=== PATIENT | male | born 1940 | race Caucasian/White ===

== ENCOUNTER 2016-06-22 12:15 | Emergency (ER) | payer MEDICARE, OTHER ==
[2016-06-22] MEDS ORDERED: SODIUM CHLORIDE 0.9% 1,000 ML IV STA (12:55)
[2016-06-22] MEDS ORDERED: ONDANSETRON 4 MG/2 ML VIAL IVP STA (12:55)
[2016-06-22] MEDS ORDERED: HYDROmorphone 1 MG/ML 1 ML SYRINGE IVP STA ×2 (12:55→15:23)
--- NOTE | 2016-06-22 12:57 | ED ---
General Adult HPI - General Chief complaint: Abdominal Pain Stated complaint: back and abd pain Time Seen by Provider: 06/22/16 12:51 Source: patient, RN notes reviewed Mode of arrival: ambulatory Limitations: no limitations - History of Present Illness Initial comments: Patient is a 75-year-old male who presents emergency room today with a chief complaint of right flank pain that started approximately 3 hours ago. Patient does admit to a sharp pain that started 3 hours ago located to the right side of the abdomen. He states he does feel some discomfort in his back radiating down to the right testicle. He does admit that he feels like he needs to urinate but is only going small amounts. Denies any other complaints. States she's never had similar symptoms in the past. Denies any history of any surgeries in the abdomen. Patient denies any recent fever, chills, shortness of breath, chest pain, back pain, numbness or tingling, dysuria or hematuria, constipation or diarrhea, headaches or visual changes, or any other complaints. - Related Data Home Medications Medication Instructions Recorded Confirmed Apixaban [Eliquis] 5 mg PO BID 06/22/16 06/22/16 Fish Oil/Dha/Epa [Fish Oil 1,200 1 cap PO DAILY 06/22/16 06/22/16 mg Fish Oil] Multivitamins, Thera [Multivitamin 1 tab PO DAILY 06/22/16 06/22/16 (formulary)] Turmeric Root Extract [Turmeric] 500 mg PO DAILY 06/22/16 06/22/16 Ubidecarenone [Co Q-10] 100 mg PO DAILY 06/22/16 06/22/16 amLODIPine [Norvasc] 5 mg PO DAILY 06/22/16 06/22/16 Previous Rx's Medication Instructions Recorded Hydrocodone/Acetaminophen [[place] 1 each PO Q6HR PRN #20 tab 06/22/16 5-325] Ondansetron Odt [Zofran ODT] 4 mg PO Q8HR PRN #20 tab 06/22/16 Sulfamethox-Tmp 800-160Mg [Bactrim 1 tab PO Q12HR #20 tab 06/22/16 DS 800-160 mg] Tamsulosin [Flomax] 0.4 mg PO DAILY #20 cap 06/22/16 Allergies Allergy/AdvReac Type Severity Reaction Status Date / Time No Known Allergies Allergy Verified 06/22/16 14:34 Review of Systems ROS Statement: Those systems with pertinent positive or pertinent negative responses have been documented in the HPI. ROS Other: All systems not noted in ROS Statement are negative. Past Medical History Past Medical History: Hypertension History of Any Multi-Drug Resistant Organisms: None Reported Additional Past Surgical History / Comment(s): neck Past Psychological History: No Psychological Hx Reported Smoking Status: Current some day smoker Past Alcohol Use History: None Reported Past Drug Use History: None Reported General Exam - General Exam Comments Initial Comments: General: The patient is awake and alert, in no distress, and does not appear acutely ill. Eye: Pupils are equal, round and reactive to light, extra-ocular movements are intact. No nystagmus. There is normal conjunctiva bilaterally. No signs of icterus. Ears, nose, mouth and throat: There are moist mucous membranes and no oral lesions. Neck: The neck is supple, there is no tenderness or JVD. Cardiovascular: There is a regular rate and rhythm. No murmur, rub or gallop is appreciated. Respiratory: Lungs are clear to auscultation, respirations are non-labored, breath sounds are equal. No wheezes, stridor, rales, or rhonchi. Gastrointestinal: Normal. 7. Normal bowel sounds. Abdomen soft on palpation. Patient does have tenderness in the right flank. No rebound tenderness. No guarding. Musculoskeletal: Normal ROM, no tenderness. Strength 5/5. Sensation intact. Pulses equal bilaterally 2+. Neurological: A&O x 3. CN II-XII intact, There are no obvious motor or sensory deficits. Coordination appears grossly intact. Speech is normal. Skin: Skin is warm and dry and no rashes or lesions are noted. Psychiatric: Cooperative, appropriate mood & affect, normal judgment. Limitations: no limitations Course Vital Signs 06/22/16 06/22/16 06/22/16 12:46 13:20 14:14 Temperature 97.4 F L 97.7 F Pulse Rate 55 L 57 L 63 Respiratory 20 16 18 Rate Blood Pressure 137/70 115/67 138/60 O2 Sat by Pulse 98 98 95 Oximetry Medical Decision Making - Medical Decision Making Patient's CT reviewed and does show distal right ureteral calculus with hydronephrosis. Nonobstructive upper pole right renal calculus. Kidney stone measuring 4-5 mm. Results were discussed with patient. A large blood in his urinalysis. 10 white cells. Has been given dose of Rocephin here in emergency room. Remaining labs reviewed and are unremarkable. Patient will be discharged home on Flomax, pain medication and nausea medication to use as needed and advised follow-up the family doctor and urologist over the next 2 days. Advised return here in the emergency room for fever, increase or worsening of symptoms or any other concerns. Patient and family member at bedside state understanding and are in agreement. - Lab Data Result diagrams: 06/22/16 13:05 06/22/16 13:05 Lab Results 06/22/16 06/22/16 06/22/16 Range/Units 13:05 13:05 13:05 WBC 10.1 (3.8-10.6) k/uL RBC 4.85 (4.30-5.90) m/uL Hgb 16.2 (13.0-17.5) gm/dL Hct 49.9 (39.0-53.0) % MCV 102.8 H (80.0-100.0) fL MCH 33.4 (25.0-35.0) pg MCHC 32.5 (31.0-37.0) g/dL RDW 13.4 (11.5-15.5) % Plt Count 263 (150-450) k/uL Neutrophils % 86 % Lymphocytes % 9 % Monocytes % 3 % Eosinophils % 0 % Basophils % 0 % Neutrophils # 8.7 H (1.3-7.7) k/uL Lymphocytes # 0.9 L (1.0-4.8) k/uL Monocytes # 0.3 (0-1.0) k/uL Eosinophils # 0.0 (0-0.7) k/uL Basophils # 0.0 (0-0.2) k/uL Macrocytosis Slight Sodium 143 (137-145) mmol/L Potassium 4.2 (3.5-5.1) mmol/L Chloride 104 (98-107) mmol/L Carbon Dioxide 27 (22-30) mmol/L Anion Gap 12 mmol/L BUN 12 (9-20) mg/dL Creatinine 1.02 (0.66-1.25) mg/dL Est GFR (MDRD) Af Amer >60 (>60 ml/min/1.73 sqM) Est GFR (MDRD) Non-Af >60 (>60 ml/min/1.73 sqM) Glucose 129 H (74-99) mg/dL Calcium 10.1 (8.4-10.2) mg/dL Total Bilirubin 0.8 (0.2-1.3) mg/dL AST 26 (17-59) U/L ALT 30 (21-72) U/L Alkaline Phosphatase 80 (38-126) U/L Total Protein 7.6 (6.3-8.2) g/dL Albumin 4.4 (3.5-5.0) g/dL Amylase 55 (30-110) U/L Lipase 98 (23-300) U/L Urine Color Yellow Urine Appearance Clear (Clear) Urine pH 5.5 (5.0-8.0) Ur Specific [place] 1.012 (1.001-1.035) Urine Protein Negative (Negative) Urine Glucose (UA) Negative (Negative) Urine Ketones Trace H (Negative) Urine Blood Large H (Negative) Urine Nitrite Negative (Negative) Urine Bilirubin Negative (Negative) Urine Urobilinogen <2.0 (<2.0) mg/dL Ur Leukocyte Esterase Negative (Negative) Urine RBC >182 H (0-5) /hpf Urine WBC 10 H (0-5) /hpf Urine Mucus Rare H (None) /hpf Disposition Clinical Impression: Kidney stone Disposition: HOME SELF-CARE Condition: Good Instructions: Kidney Stones (ED) Additional Instructions: Please use medication as discussed. Please follow-up with family doctor in the next 2 days of symptoms have not improved. Please return to emergency room if the symptoms increase or worsen or for any other concerns. Prescriptions: Hydrocodone/Acetaminophen [[place] 5-325] 1 each PO Q6HR PRN #20 tab PRN Reason: Pain Ondansetron Odt [Zofran ODT] 4 mg PO Q8HR PRN #20 tab PRN Reason: Nausea Sulfamethox-Tmp 800-160Mg [Bactrim DS 800-160 mg] 1 tab PO Q12HR #20 tab Tamsulosin [Flomax] 0.4 mg PO DAILY #20 cap Referrals: Rodríguez Martin MD [Primary Care Provider] - 1-2 days Álvaro Briceño MD [STAFF PHYSICIAN] - 1-2 days Time of Disposition: 15:06
[2016-06-22 13:29] LABS: Basophils % (A) 0 %; CH 34.4; CHCM 33.6; Eosinophils % (A) 0 %; HCT 49.9 % (39.0-53.0); HDW 2.57; HGB 16.2 gm/dL (13.0-17.5); Luc # (Auto) 0.11; Luc % (Auto) 1; Lymphocytes # (A) 0.9 k/uL (1.0-4.8); Lymphocytes % (A) 9 %; MCH 33.4 pg (25.0-35.0); MCHC 32.5 g/dL (31.0-37.0); MCV 102.8 fL (80.0-100.0); Macrocytosis Slight; Mean Platelet Volume 6.7; Monocytes # (A) 0.3 k/uL (0-1.0); Monocytes % (A) 3 %; Neutrophils # (A) 8.7 k/uL (1.3-7.7); Neutrophils % (A) 86 %; RBC 4.85 m/uL (4.30-5.90); RDW 13.4 % (11.5-15.5); WBC 10.1 k/uL (3.8-10.6); WBC (Perox) 10.09
[2016-06-22 13:36] LABS: Appearance,Urine Clear (Clear); Bilirubin,Urine Negative (Negative); Glucose,Urine (UA) Negative (Negative); Ketones,Urine Trace (Negative); Leukocyte Esterase,Urine Negative (Negative); Mucus,Urine Rare /hpf; Nitrite,Urine Negative (Negative); PH, Urine 5.5 (5.0-8.0); Particle Count 1868; Protein,Urine Negative (Negative); RBC,Urine >182 /hpf (0-5); Specific Gravity,Urine 1.012 (1.001-1.035); UA Billing (MACRO vs. MICRO) MICRO; Urobilinogen,Urine <2.0 mg/dL (<2.0); WBC,Urine 10 /hpf (0-5)
[2016-06-22 13:38] LABS: ALT 30 U/L (21-72); AST 26 U/L (17-59); Alkaline Phosphatase 80 U/L (38-126); Amylase 55 U/L (30-110); Anion Gap 12 mmol/L; Blood Urea Nitrogen 12 mg/dL (9-20); Calcium 10.1 mg/dL (8.4-10.2); Carbon Dioxide 27 mmol/L (22-30); Chloride 104 mmol/L (98-107); Glucose 129 mg/dL (74-99); Non-African American GFR(MDRD) >60 (>60 ml/min/1.73 sqM); Potassium 4.2 mmol/L (3.5-5.1); Sodium 143 mmol/L (137-145); Total Bilirubin 0.8 mg/dL (0.2-1.3); Total Protein 7.6 g/dL (6.3-8.2)
--- NOTE | 2016-06-22 13:51 | XR ---
EXAMINATION TYPE: XR KUB DATE OF EXAM ORDERED: 06/22/2016 1:36 PM HISTORY: abdominal pain. COMPARISON: None. FINDINGS: There is a gentle levoscoliosis. The abdominal gas pattern is normal. There is no evidence of obstruction or free air. There are minim al vascular calcifications within the pelvis. IMPRESSION: NO ACUTE INTRA-ABDOMINAL ABNORMALITY.
[2016-06-22 14:18] VITALS: RESP 18; TEMP 97.7
--- NOTE | 2016-06-22 14:45 | CT ---
EXAMINATION TYPE: CT abdomen pelvis wo con DATE OF EXAM: 06/22/2016 2:24 PM COMPARISON: NONE HISTORY: nausea and vomiting CT DLP: 272.9 mGycm Automated exposure control for dose reduction was used. TECHNIQUE: Helical acquisition of images from the lung bases through the pelvis. FINDINGS: LUNG BASES: There are posterior diaphragmatic hernias bilaterally. Some probable scarring present romeo ng the lingula. Coronary artery calcifications are present. AORTA: No significant abnormality is appreciated. LIVER/GB: No significant abnormality is appreciated. PANCREAS: No significant abnormality is seen. SPLEEN: No significant abnormality is seen. ADRENALS: No significant abnormality is seen. KIDNEYS: Large exophytic cysts are present anteriorly at the mid and lower pole of the left kidney me asuring 6 and 7 cm. The right kidney shows hydronephrosis. Punctate calcification present at the uppe r pole. There is right-sided hydroureter, distal right ureteral calcification is present measuring 4 to 5 mm. REPRODUCTIVE ORGANS: Prostate is enlarged and shows associated calcifications URINARY BLADDER: Thickened wall may be due to chronic outlet obstruction BOWEL: Diverticular change in the sigmoid colon. No evident bowel obstruction. FREE AIR: No Free Air is visible. ASCITES: None visible. PELVIC ADENOPATHY: None visualized. RETROPERITONEAL ADENOPATHY: No Retroperitoneal Adenopathy visible. OSSEOUS STRUCTURES: Degenerative disc disease, scoliosis, facet arthropathy is present. IMPRESSION: NONCONTRAST EXAM. DISTAL RIGHT URETERAL CALCULUS WITH HYDRONEPHROSIS, THERE IS A NONOBSTRUCTIVE UPPER POLE RIGHT RENAL CALCULUS. ADDITIONAL FINDINGS ABOVE. DIVERTICULOSIS.
[2016-06-22 15:36] VITALS: BP 164/73; PULSE 65
== END 2016-06-22 15:36 | disposition home or self-care (01) ==
LOC: EC 12:15
DX: N13.2 Hydronephrosis with renal and ureteral calculous obstruction (principal); K57.30 Diverticulosis of large intestine without perforation or abscess without bleeding; I10 Essential (primary) hypertension; F17.200 Nicotine dependence, unspecified, uncomplicated; Z79.01 Long term (current) use of anticoagulants; Z79.899 Other long term (current) drug therapy
CPT/HCPCS: 99284 ×2; 96375 ×3; 96376 ×2; 96361 ×2; 96374; 36415; 80053; 82150; 83690; 85025; 81001; 87086; 74000; 74176; 96365; J2405; J0696; J1170

== ENCOUNTER 2018-01-04 23:47 | Emergency (ER) | payer MEDICARE, OTHER ==
[2018-01-04 23:52] VITALS: TEMP 98.2
[2018-01-05] MEDS ORDERED: TROPICAMIDE 1% OPHTH DROPS 2 ML BTL RIGHT EYE STA (00:18)
--- NOTE | 2018-01-05 00:43 | ED ---
Eye Problem HPI - General Chief complaint: Eye Problems Stated complaint: loss of vision Time Seen by Provider: 01/05/18 00:08 Source: patient, family Mode of arrival: ambulatory Limitations: no limitations - History of Present Illness Initial comments: This patient is a 77-year-old man who had the acute onset of visual loss of the right eye at approximately 10:45 PM tonight. The patient denies any trauma or injury to the eye. He states that it appears that the entire of vision on the right has gone dark. I did not appear to come on gradually. It did not appear to come on as a curtain coming over the visual field. Patient denies headache or orbital pain. History is notable for having cataract surgery 2 months ago, performed, without complication. MD chief complaint: vision change Onset/Timin -: hour(s) Onset Description: sudden Location: right eye Place: home If Injury: none Consistency: constant Associated Symptoms: none Treatments Prior to Arrival: none - Related Data Home Medications Medication Instructions Recorded Confirmed Apixaban [Eliquis] 5 mg PO BID 06/22/16 06/22/16 Fish Oil/Dha/Epa [Fish Oil 1,200 1 cap PO DAILY 06/22/16 06/22/16 mg Fish Oil] Multivitamins, Thera [Multivitamin 1 tab PO DAILY 06/22/16 06/22/16 (formulary)] Turmeric Root Extract [Turmeric] 500 mg PO DAILY 06/22/16 06/22/16 Ubidecarenone [Co Q-10] 100 mg PO DAILY 06/22/16 06/22/16 amLODIPine [Norvasc] 5 mg PO DAILY 06/22/16 06/22/16 Previous Rx's Medication Instructions Recorded Hydrocodone/Acetaminophen [[place] 1 each PO Q6HR PRN #20 tab 06/22/16 5-325] Ondansetron Odt [Zofran ODT] 4 mg PO Q8HR PRN #20 tab 06/22/16 Sulfamethox-Tmp 800-160Mg [Bactrim 1 tab PO Q12HR #20 tab 06/22/16 DS 800-160 mg] Tamsulosin [Flomax] 0.4 mg PO DAILY #20 cap 06/22/16 Allergies Allergy/AdvReac Type Severity Reaction Status Date / Time No Known Allergies Allergy Verified 01/04/18 23:52 Review of Systems ROS Statement: Those systems with pertinent positive or pertinent negative responses have been documented in the HPI. ROS Other: All systems not noted in ROS Statement are negative. Constitutional: Denies: fever, chills Eyes: Reports: vision change. Denies: eye pain, eye discharge ENT: Denies: congestion Respiratory: Denies: cough, dyspnea Cardiovascular: Denies: chest pain, palpitations, syncope Gastrointestinal: Denies: abdominal pain, vomiting, diarrhea Neurological: Denies: headache, weakness, numbness, paresthesias Past Medical History Past Medical History: Hypertension History of Any Multi-Drug Resistant Organisms: None Reported Additional Past Surgical History / Comment(s): neck Past Psychological History: No Psychological Hx Reported Smoking Status: Current some day smoker Past Alcohol Use History: None Reported Past Drug Use History: None Reported General Exam Limitations: no limitations General appearance: alert, in no apparent distress Head exam: Present: atraumatic, normocephalic Eye exam: Present: normal appearance, EOMI. Absent: scleral icterus, conjunctival injection, periorbital swelling, periorbital tenderness Pupils: Present: other (Afferent pupillary defect.) Expanded Eyelids: Normal Inspection: Bilateral Pupils: Regular, Round: Bilateral, Reactive: Left Sclera/Conjunctival: Normal Inspection: Bilateral Anterior chamber: Normal Inspection: Bilateral IOP (R) in mmH IOP (L) in mmH IOP measured with: other (iCare device) ENT exam: Present: normal oropharynx Neck exam: Present: normal inspection Respiratory exam: Present: normal lung sounds bilaterally. Absent: respiratory distress, wheezes, rales, rhonchi, stridor Cardiovascular Exam: Present: regular rate, normal rhythm, normal heart sounds. Absent: systolic murmur, diastolic murmur, rubs, gallop Neurological exam: Present: alert, oriented X3, CN II-XII intact. Absent: motor sensory deficit Skin exam: Present: warm, dry, intact, normal color. Absent: rash Course Vital Signs 01/04/18 01/05/18 01/05/18 23:50 01:09 01:47 Temperature 98.2 F Pulse Rate 69 65 Respiratory 18 16 16 Rate Blood Pressure 161/87 152/84 149/75 O2 Sat by Pulse 96 95 Oximetry 01/05/18 02:13 Temperature Pulse Rate 69 Respiratory 16 Rate Blood Pressure 132/69 O2 Sat by Pulse 99 Oximetry Medical Decision Making - Medical Decision Making Patient is 77-year-old man with acute, painless, right eye visual acuity loss. I did attempt to reach Dr. Brantley, who is pharmacy operations manager operations research scientist, but was unsuccessful after multiple attempts at all of the contact numbers we have available. I was able to reach Dr. Huynh, who was able to see the patient in the emergency department. After dilation, the funduscopic exam does appear consistent with retinal artery occlusion. Dr. Huynh's treatment recommendations are incorporated. He performed globe massage. In addition he was able to withdraw small amount of fluid from the patient's anterior chamber. Following treatment, patient's pressure checked again and it is now 2 mmHg. The patient is given additional treatment to continue over the course the day and is to contact Dr. Brantley. She is not able to speak with Dr. Brantley follow with . Term parameters discussed. - Lab Data Result diagrams: 01/05/18 00:57 01/05/18 00:57 Lab Results 01/05/18 01/05/18 Range/Units 00:57 00:57 WBC 8.1 (3.8-10.6) k/uL RBC 4.72 (4.30-5.90) m/uL Hgb 15.2 (13.0-17.5) gm/dL Hct 47.3 (39.0-53.0) % MCV 100.3 H (80.0-100.0) fL MCH 32.2 (25.0-35.0) pg MCHC 32.1 (31.0-37.0) g/dL RDW 14.2 (11.5-15.5) % Plt Count 247 (150-450) k/uL Neutrophils % 48 % Lymphocytes % 34 % Monocytes % 9 % Eosinophils % 5 % Basophils % 1 % Neutrophils # 3.9 (1.3-7.7) k/uL Lymphocytes # 2.8 (1.0-4.8) k/uL Monocytes # 0.7 (0-1.0) k/uL Eosinophils # 0.4 (0-0.7) k/uL Basophils # 0.1 (0-0.2) k/uL Macrocytosis Slight Sodium 140 (137-145) mmol/L Potassium 4.1 (3.5-5.1) mmol/L Chloride 109 H (98-107) mmol/L Carbon Dioxide 24 (22-30) mmol/L Anion Gap 7 mmol/L BUN 13 (9-20) mg/dL Creatinine 1.03 (0.66-1.25) mg/dL Est GFR (CKD-EPI)AfAm 81 (>60 ml/min/1.73 sqM) Est GFR (CKD-EPI)NonAf 70 (>60 ml/min/1.73 sqM) Glucose 84 (74-99) mg/dL Calcium 9.4 (8.4-10.2) mg/dL C-Reactive Protein <5.0 (<10.0) mg/L Disposition Clinical Impression: Retinal artery occlusion Disposition: HOME SELF-CARE Condition: Fair Instructions: Blurred Vision (ED) Is patient prescribed a controlled substance at d/c from ED?: No Referrals: Rodríguez Martin MD [Primary Care Provider] - 1-2 days
[2018-01-05] MEDS ORDERED: VERAPAMIL 2.5 MG/ML 2 ML AMP IVP STA (01:06)
[2018-01-05 01:10] VITALS: RESP 16
[2018-01-05 01:18] LABS: Basophils # (A) 0.1 k/uL (0-0.2); Basophils % (A) 1 %; Eosinophils # (A) 0.4 k/uL (0-0.7); Eosinophils % (A) 5 %; HCT 47.3 % (39.0-53.0); HGB 15.2 gm/dL (13.0-17.5); Lymphocytes # (A) 2.8 k/uL (1.0-4.8); Lymphocytes % (A) 34 %; MCH 32.2 pg (25.0-35.0); MCHC 32.1 g/dL (31.0-37.0); MCV 100.3 fL (80.0-100.0); Macrocytosis Slight; Mean Platelet Volume 6.7; Monocytes # (A) 0.7 k/uL (0-1.0); Monocytes % (A) 9 %; Neutrophils # (A) 3.9 k/uL (1.3-7.7); Neutrophils % (A) 48 %; Platelet Count 247 k/uL (150-450); RBC 4.72 m/uL (4.30-5.90); RDW 14.2 % (11.5-15.5); WBC 8.1 k/uL (3.8-10.6)
[2018-01-05 01:32] LABS: Anion Gap 7 mmol/L; Blood Urea Nitrogen 13 mg/dL (9-20); Calcium 9.4 mg/dL (8.4-10.2); Carbon Dioxide 24 mmol/L (22-30); Chloride 109 mmol/L (98-107); Glucose 84 mg/dL (74-99); Potassium 4.1 mmol/L (3.5-5.1); Sodium 140 mmol/L (137-145)
[2018-01-05 01:33] LABS: C Reactive Protein <5.0 mg/L (<10.0)
[2018-01-05] MEDS ORDERED: PROPARACAINE 0.5% OPHTH DROPS 15 ML BTL ONE (01:53)
[2018-01-05] MEDS ORDERED: PROPARACAINE 0.5% OPHTH DROPS 15 ML BTL RIGHT EYE STA (01:53)
--- NOTE | 2018-01-05 01:54 | CT ---
EXAMINATION TYPE: CT brain wo con DATE OF EXAM: 01/05/2018 COMPARISON: None HISTORY: loss of vision right eye CT DLP: 1056.60 mGycm Automated exposure control for dose reduction was used. FINDINGS: There is cerebral cortical atrophy. There is no mass effect nor midline shift. There is no sign of in tracranial hemorrhage. The calvarium is intact. There is some mucosal thickening in the ethmoid sinus to a mild extent. There is no evidence of orbital mass. IMPRESSION: CEREBRAL ATROPHY. NO ACUTE INTRACRANIAL ABNORMALITY.
[2018-01-05] MEDS ORDERED: SULFACETAMIDE SOD 10% OPHTH DROPS 15 ML BTL RIGHT EYE STA (02:12)
[2018-01-05 02:15] VITALS: BP 132/69; PULSE 69
[2018-01-05] MEDS ORDERED: BRIMONIDINE TARTRATE 0.2% DROPS 5 ML BTL RIGHT EYE STA (02:32)
[2018-01-05] MEDS ORDERED: prednisoLONE ACETATE 1% OPHTH DROPS 5 ML BTL RIGHT EYE STA (02:32)
--- NOTE | 2018-01-05 12:53 | CONS ---
CONSULTATION DATE OF CONSULTATION: January 05, 2018. REASON FOR CONSULTATION: Consultation is for sudden onset of loss of vision in the right eye. HISTORY OF PRESENT ILLNESS: Approximately two hours prior to being called to the emergency room Mr. Fernando who is a 77-year-old gentleman who underwent cataract surgery approximately 2 months ago, presented with a sudden painless loss of vision in the right eye. He was initially evaluated by the emergency room physician and a number of examinations were performed including CT, EKG and lab work. There was nothing outstanding found in any of the preliminary work except for the fact that the patient was no light perception at the time of his admission. 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 The patient denies that he has had any symptoms of polymyalgia rheumatica and giant cell arteritis, trauma to the eye or other difficulties. According to his , he had a particularly busy day cleaning up around the around the beach and taking care of the lawn, getting ready for fall. Apparently, this gentleman's only underlying medical problems primarily center around an episode of paroxysmal atrial fibrillation, which seems to be adequate adequately controlled on amlodipine and currently he takes Xarelto as a protective measure. REVIEW OF SYSTEMS: Is largely inconsequential as far as any problems except for that which relates specifically to the eye. His past ocular history is consistent with cataract surgery approximately 2 months ago, which was accomplished bilaterally with Dr. Brantley. PHYSICAL EXAMINATION: GENERAL: The patient was alert, oriented, and in no acute distress. He was really able to discuss with me his underlying problem. Ocular examination including visual acuity was perhaps light perception with projection in the right eye. A definite afferent pupillary defect was noted with bright light in the right eye. Intraocular pressures bilaterally using an eye care tonometer was 11 mm in the each eye. Slit lamp examination revealed the cornea to be clear. Conjunctivae bilaterally were quiet. Anterior chambers were deep and quiet. Irides were without any pathology. Intra- ocular lenses are extended depth of field type. Vitreous was clear. Optic nerve was sharp, flat and mildly pale on the right. It was difficult to examine the left without any dilation. Cup-to-disc was approximately 0.1 on the right and generalized funduscopic examination revealed thready arterials with no evidence of any Hollenhorst plaque like debris anywhere within the fundus. Centrally, however, there was a very distinct cunningham red spot with active plasma swelling within the arcades of the right eye. While at the slit lamp, attempts at digital massage of the right globe did not particularly improve the visual situation. However, there was an appreciable increase in arterial flow throughout the fundus. The concern at this point was that there was nothing notably identified within the circulation. Therefore, in an attempt to try to improve the arterial circulation better, it was decided to opt for a paracentesis in the right eye. This was accomplished, and the intra-ocular pressure was dropped to 2 mmHg with perhaps a slight improvement in the temporal field from the right eye on confrontational sales. 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 RECOMMENDATION: 1. Was to start brimonidine 0.23 times a day in the right eye as well as prednisolone acetate 1% 3 times a day in the right eye. 2. Would be to follow up with Dr. Brantley within the next 24-48 hours. 3. He is to follow up with Dr. Ku with carotid studies which have been ongoing semi annually apparently for some period of time as this is probably an embolic phenomenon. 4. Would be to discuss with Dr. Martin the underlying problem and to possibly seek an echocardiogram to examine the heart to be sure that there is no evidence of any clotting debris within the atria with his underlying history. Thank you very much for this consultation. MMODL / IJN: [id number] /
--- NOTE | 2018-01-05 13:05 | OP ---
OPERATIVE REPORT DATE OF PROCEDURE: 01/05/2018. PROCEDURE: Paracentesis of the right eye. PREOPERATIVE DIAGNOSIS: Sudden loss of vision in the right eye. POSTOPERATIVE DIAGNOSIS: Sudden loss of vision in the right eye. SURGEON: Dr. Suresh Huynh. ANESTHESIA: Topical. ESTIMATED BLOOD LOSS: None. SPECIMENS TAKEN: None. NARRATIVE: This 77-year-old gentleman presented with a sudden onset of painless loss of vision in his right eye. All underlying labs indicate that this is most likely of an embolic cause. During slit-lamp examination, it was determined that there was an improvement in arterial circulation, and despite the fact that the intraocular pressure was only 11 mmHg to start with, it was felt somewhat worthwhile to attempt to lower the pressure a little bit further with a somewhat longer and more profound drop in pressure through a surgical technique. Therefore, it was decided to proceed with a paracentesis of the right eye. DESCRIPTION OF PROCEDURE: He was prepared using proparacaine 4 sets of drop approximately 3 minutes apart. The eye was prepped with Betadine on the skin and eyelid. A José Miguel lid speculum was used to hold the eyes open. He was then asked to maintain his fixation on an object across the room using his left eye. A 30-gauge hypodermic needle on a tuberculin syringe was entered temporally into the patient's cornea parallel to the iris, with the tip of the needle in the mid anterior chamber. Approximately 2/10 of a milliliter of aqueous was drawn off of the eye and the needle was withdrawn without difficulty. A drop of sulfacetamide antibiotic drops was placed in the eye on removal of the lid speculum. The patient was then brought back to the slit-lamp and, on funduscopic examination, it was appreciated that the arterials were somewhat more full. There was no appreciable improvement in central vision, as probably there would not be with there being some axoplasmic stagnation, but there was some appreciation of superotemporal vision, as he did appreciate my ear during confrontational field testing. An intraocular pressure using the eye care tonometer following the procedure revealed an intraocular pressure of 2 mm. There were no complications from this procedure. He tolerated the procedure well and discharged from the emergency room, proceeded according to the plans discussed in the emergency room note signed by Dr. Rj Loera. MMMARIANAL / GREYN: [id number] /
== END 2018-01-05 03:11 | disposition home or self-care (01) ==
LOC: EC 23:47
DX: H34.9 Unspecified retinal vascular occlusion (principal); I10 Essential (primary) hypertension; F17.200 Nicotine dependence, unspecified, uncomplicated; Z79.01 Long term (current) use of anticoagulants; Z79.899 Other long term (current) drug therapy; Z98.890 Other specified postprocedural states
CPT/HCPCS: 36415; 65800; 70450; 80048; 85025; 86140; 93005; 96374; 99285

== ENCOUNTER → 2018-02-04 | Outpatient (CLI) | payer MEDICARE ==
[2018-02-04 12:47] LABS: Basophils # (A) 0.1 k/uL (0-0.2); Basophils % (A) 1 %; Eosinophils # (A) 0.4 k/uL (0-0.7); Eosinophils % (A) 4 %; HGB 16.2 gm/dL (13.0-17.5); Lymphocytes # (A) 2.2 k/uL (1.0-4.8); Lymphocytes % (A) 20 %; MCH 32.6 pg (25.0-35.0); MCHC 31.8 g/dL (31.0-37.0); MCV 102.8 fL (80.0-100.0); Macrocytosis Slight; Mean Platelet Volume 6.7; Monocytes # (A) 0.6 k/uL (0-1.0); Monocytes % (A) 6 %; Neutrophils # (A) 7.2 k/uL (1.3-7.7); Neutrophils % (A) 67 %; Platelet Count 222 k/uL (150-450); RBC 4.96 m/uL (4.30-5.90); RDW 14.7 % (11.5-15.5); WBC 10.8 k/uL (3.8-10.6)
[2018-02-04 12:54] LABS: Potassium 4.4 mmol/L (3.5-5.1)
== END | disposition home or self-care (01) ==
LOC: LABPAT 12:00
PROVIDERS: ATTEND Surgery
DX: Z01.812 Encounter for preprocedural laboratory examination (principal); I65.21 Occlusion and stenosis of right carotid artery
CPT/HCPCS: 36415; 80051; 82565; 84520; 85025

== ENCOUNTER 2018-02-07 05:36 | Inpatient (IN) | payer MEDICARE ==
[2018-02-05 10:18] VITALS: BMI 23.6
--- NOTE | 2018-02-06 16:31 | P.HPIHPCON ---
History of Present Illness H&P Date: 02/04/18 Chief Complaint: Symptomatic right carotid stenosis 77 year old gentleman presented to the office secondary to right carotid stenosis. Patient was recently in the hospital secondary to blindness of the right eye which he was found to have right carotid stenosis of >80% on CTA and ultrasound. Patient states still having blindness in the right eye but denies any other lateralizing symptoms. He presents to the hospital for right carotid endarterectomy. Consent for Procedure: I have explained the operation/procedure to the patient, including the risks, benefits, side effects, alternative therapies (including not receiving the proposed treatment or service), the likelihood of the patient achieving his/her goals, and potential recuperation problems for the procedure/sedation/analgesia , as well as any blood products, if indicated. I also explained to the patient the risks, benefits and side effects of the alternatives, as well as the risks related to not receiving the proposed procedure, care, treatment, or services. - Review of Systems All systems: negative (which is stated in the HPI and PMH.) Past Medical History Past Medical History: Atrial Fibrillation, Hypertension, Osteoarthritis (OA) History of Any Multi-Drug Resistant Organisms: None Reported Additional Past Surgical History / Comment(s): cervical fusion, cataract surg. Past Anesthesia/Blood Transfusion Reactions: No Reported Reaction Smoking Status: Current some day smoker - Past Family History Mother Family Medical History: No Reported History Medications and Allergies Home Medications Medication Instructions Recorded Confirmed Type Apixaban [Eliquis] 5 mg PO BID 06/22/16 02/05/18 History amLODIPine [Norvasc] 5 mg PO DAILY 06/22/16 02/05/18 History Allergies Allergy/AdvReac Type Severity Reaction Status Date / Time No Known Allergies Allergy Verified 02/05/18 10:06 Surgical - Exam - General well developed, well nourished, no distress - Eyes normal ocular movement - ENT normal pinna - Neck no masses - Respiratory normal expansion - Cardiovascular Rhythm: irregularly irregular - Abdomen Abdomen: soft, non tender - Neurologic normal coordination, normal sensation - Musculoskeletal normal gait - Psychiatric oriented to time, oriented to person, oriented to place, speech is normal Assessment and Plan (1) Symptomatic stenosis of right carotid artery Status: Acute Code(s): I65.21 - OCCLUSION AND STENOSIS OF RIGHT CAROTID ARTERY SNOMED Code(s): 107058113276737 Plan: To OR for right carotid endarterectomy and patch angioplasty.
[~2018-02-07 05:36] MED LIST: ceFAZolin IN SWFI 2 GM/20 ML SYRINGE IVP ONE
[2018-02-07] MEDS ORDERED: HYDROmorphone 1 MG/ML 1 ML SYRINGE IVP PRN (06:04)
[2018-02-07] MEDS ORDERED: ONDANSETRON 4 MG/2 ML VIAL IVP ONE (06:04)
[2018-02-07] MEDS ORDERED: MIDAZOLAM 2 MG/2 ML VIAL IV PRN (06:04)
[2018-02-07] MEDS ORDERED: DEXAMETHASONE SOD PHOSPHATE 10 MG/ML 1 ML VIAL IV ONE (06:04)
[2018-02-07] MEDS: LACTATED RINGERS 1,000 ML IV SCH ×2 (06:37→11:32)
[2018-02-07] MEDS ORDERED: LIDOCAINE 1% 20 ML VIAL (10MG/ML) FOR IV START INTRADERMA ONE (06:37)
[2018-02-07] MEDS ORDERED: NITROGLYCERIN-D5W PMX 50 MG in DEXTROSE/WATER 1 250ML.BAG IV SCH (07:00)
[2018-02-07] MEDS ORDERED: HEPARIN SODIUM,PORCINE 5,000 UNIT/ML 1 ML VIAL ONE (07:30)
[2018-02-07] MEDS ORDERED: MIDAZOLAM 2 MG/2 ML VIAL ONE (07:30)
[2018-02-07] MEDS ORDERED: PROPOFOL 10 MG/ML 20 ML VIAL IV ONE (07:30)
[2018-02-07] MEDS ORDERED: SUCCINYLCHOLINE CHLORIDE 100 MG/5 ML SYR IV ONE (07:30)
[2018-02-07] MEDS ORDERED: GLYCOPYRROLATE 0.2 MG/ML 2 ML VIAL ONE (07:30)
[2018-02-07] MEDS ORDERED: NEOSTIGMINE 1 MG/ML 10 ML VIAL ONE (07:30)
[2018-02-07] MEDS ORDERED: PHENYLEPHRINE-0.9% NACL SYG 1 MG/10 ML SYRINGE ONE (07:30)
[2018-02-07] MEDS ORDERED: ROCURONIUM BROMIDE 10 MG/ML 10 ML VIAL IV ONE (07:30)
[2018-02-07] MEDS ORDERED: LIDOCAINE 1% INJ 10MG/ML (20 ML MDV) ONE (07:30)
[2018-02-07] MEDS ORDERED: hydrALAZINE HCL 20 MG/ML 1 ML VIAL ONE (07:30)
[2018-02-07] MEDS ORDERED: fentaNYL (PF) 50 MCG/ML 2 ML AMP ONE (07:30)
[2018-02-07] MEDS ORDERED: LIDOCAINE 1% INJ 10MG/ML (20 ML MDV) IM ONE ×2 (08:06)
[2018-02-07] MEDS ORDERED: THROMBIN (BOVINE) 5,000 UNIT VIAL TOPICAL ONE ×2 (08:43)
[2018-02-07] MEDS ORDERED: GELATIN SPONGE,ABSORB (LARGE) 1 EACH SPONGE TOPICAL ONE (08:43)
[2018-02-07] MEDS ORDERED: LACTATED RINGERS 1,000 ML IV ONE ×2 (09:03)
[2018-02-07] MEDS ORDERED: BENZOCAINE/MENTHOL LOZENG 1 EACH LOZENGE MUCOUS MEM PRN (10:27)
[2018-02-07] MEDS ORDERED: MAG HYDROX/AL HYDROX/SIMETH 30 ML CUP PO PRN (10:27)
[2018-02-07] MEDS ORDERED: TRIMETHOBENZAMIDE 100 MG/ML 2 ML VIAL IM PRN (10:27)
[2018-02-07] MEDS ORDERED: ACETAMINOPHEN TAB 325 MG TAB PO PRN (10:27)
[2018-02-07] MEDS ORDERED: MORPHINE SULFATE 2 MG/ML SYRINGE IVP PRN (10:27)
[2018-02-07] MEDS ORDERED: HYDROcodone/APAP 5-325MG 1 EACH TAB PO PRN (10:27)
--- NOTE | 2018-02-07 10:41 | P.OP ---
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 He was found to have >80% stenosis of the right internal carotid artery. He presents for carotid endarterectomy. Operative Findings: dense plaque extending from common carotid to the internal carotid artery. Description of Procedure: After written and informed consent was obtained from the patient and all risks, benefits and complications including stroke were discussed he was brought to the operative suite and laid in a supine position. The area of the neck was prepped and draped in the usual sterile fashion after appropriate anesthetic was performed per anesthesia. Time out was performed in usual fashion and antibiotics were given prior the incision. An oblique incision was then made over the sternocleidomastoid muscle and dissection was carried down to the carotid sheath. The facial vein was encountered and dissected free and ligated in normal fashion to get access to the carotid artery. The sheath was incised and the common carotid, superior thyroid, internal and external carotid arteries were then dissected in a circumferential manner and controlled with vessel loops. The patient was given heparin at this point and followed with serial ACTs for appropriate heparinization. Of note upon dissection the internal carotid plaque was palpated high, above the hypoglossal nerve and therefore meticulous dissection was carried around the nerve to expose the endpoint of the internal carotid artery. Once heparin was allowed to circulate and ACT was above 200, proximal and distal clamps were placed and arteriotomy with 11 blade scalpel was performed and extended with Rodriguez larsen scissors. The plaque was dense and extended past the hypoglossal nerve. Once past the endpoint of the plaque, the internal carotid was allowed to backbleed and stump pressures were obtained and shown to be around MAP of 40. At that point a Sundt shunt was placed in normal fashion. Endarterectomy was then completed with freer elevator with good feathering of the plaque at the internal carotid artery as well as an eversion technique for the external carotid artery. The area was irrigated and all free debris was removed. The distal portion of the internal carotid artery was tacked with 7-0 prolene suture to prevent any flap. A 1x6 cm bovine pericardial patch was then chosen and patch angioplasty was performed with 6-0 prolene suture in a running fashion. Prior to last sutures being placed the shunt was removed and arteries were re-clamped, and the patch was irrigated with heparinized saline. Final sutures were placed and control was released in normal fashion to shunt free debris to the external carotid prior to releasing the internal carotid artery. Once completed, hemostasis was ensured with gelfoam and thrombin over the suture line. The area was copiously irrigated with antibiotic solution. A SERAFIN drain was then placed and secured with nylon suture. The incision was then closed in a multi layer fashion. Skin was cleansed and dressings were placed. Patient was awoken in the OR, was following commands, moving all extremities and had no focal deficits and was sent to the PACU for recovery.
--- NOTE | 2018-02-07 11:36 | CDI ---
[place]. Please refer to cardiology. Documentation Clarification Form Date: 02/07/2018 CDS: Dianne Bolton, VIOLETTE, CCDS Admit Date: 02/07/2018 Patient Name: Man Fernando Discharge Date: ATTENTION: The Clinical Documentation Specialists (CDI) and [facility] Coding Staff appreciate your assistance in clarifying documentation. Please respond to the clarification below the line at the bottom and electronically sign. The CDI & [facility] Coding staff will review the response and follow-up if needed. Please note: Queries are made part of the Legal Health Record. If you have any questions, please contact the author of this message via ITS. Dr. Rj Smith, DO: Patient presented for an elective right carotid endarterectomy with patch angioplasty for 80% stenosis of right common carotid. Per the H/P the patient has a history of Atrial Fibrillation on Eliquis. History/Risk Factors: A Fib, Hypertension, OA, Smoker. Clinical Indicators: HR 55 - 50 - 58 Treatment: IV Kefzol, IV Decadron, IV dilaudid, IV Zofran, IV Nitro (for surgery ), Heparin sq, Home meds including Eliquis. In your professional opinion, can you please clarify the type of atrial fibrillation, if known? Chronic/Permanent Paroxysmal Persistent Other, please specify Unable to determine MTDD
[2018-02-07 12:17] LABS: Glucose,Whole Blood 110 mg/dL (75-99)
[2018-02-07 14:23] LABS: Basophils % (A) 0 %; Eosinophils # (A) 0.1 k/uL (0-0.7); Eosinophils % (A) 1 %; HCT 41.9 % (39.0-53.0); HGB 13.6 gm/dL (13.0-17.5); Lymphocytes # (A) 0.6 k/uL (1.0-4.8); Lymphocytes % (A) 7 %; MCH 32.5 pg (25.0-35.0); MCHC 32.5 g/dL (31.0-37.0); MCV 99.9 fL (80.0-100.0); Macrocytosis Slight; Mean Platelet Volume 6.8; Monocytes # (A) 0.2 k/uL (0-1.0); Monocytes % (A) 2 %; Neutrophils # (A) 8.1 k/uL (1.3-7.7); Neutrophils % (A) 90 %; Platelet Count 174 k/uL (150-450); RBC 4.19 m/uL (4.30-5.90); RDW 14.5 % (11.5-15.5)
--- NOTE | 2018-02-07 15:31 | CONS ---
CONSULTATION Mr. Fernando is a 77-year-old male who has been followed by Dr. Bolton, recently had loss of vision and was found to have significant obstructive disease in the right carotid artery confirmed by his CT angiogram. He underwent right carotid endarterectomy today. He has history of paroxysmal atrial fibrillation as well history of hyperlipidemia. He has no history of obstructive coronary artery disease or congestive heart failure. He is usually active physically without any difficulty. He has no history of PND, orthopnea, or peripheral edema. No dizziness or syncope. MEDICATION: At home included amlodipine 5 mg daily, Eliquis 5 mg twice a day. REVIEW OF SYSTEMS: RESPIRATORY SYSTEM: He has no recent wheezing. No cough. No history of obstructive lung disease. GI SYSTEM: No recent GI bleed. No peptic ulcer disease. SYSTEM: No dysuria or hematuria. NERVOUS SYSTEM: He had a stroke was loss of vision on the right side. PHYSICAL EXAMINATION: He is a 77-year-old male, alert, oriented, in no apparent distress. Blood pressure 102/50 with a heart rate in 50s. HEAD: Normocephalic. EYES: Sclerae nonicteric. NECK: With dressing over the right side and drain noted. LUNGS: Clear to auscultation. HEART: Regular rate and rhythm. S1, S2. No S3. No rub. ABDOMEN: Soft, nontender, positive bowel sounds, no organomegaly. EXTREMITIES: No edema, intact pulses. IMPRESSION: 1. Status post right carotid endarterectomy. 2. Hypertension. 3. Paroxysmal atrial fibrillation. 4. Hyperlipidemia. RECOMMENDATION: I would add to his regimen a statin that was planned to be added by Dr. Bolton. In view of his findings, I would follow his blood pressure and depending on the trend, further recommendation will be made. Thank you for this consult. Will follow with you. MMODL / IJN: [id number] /
[2018-02-07 17:16] LABS: Glucose,Whole Blood 113 mg/dL (75-99)
[2018-02-07] MEDS: ATORVASTATIN 40 MG TAB PO SCH (21:55)
[2018-02-07] MEDS: HEPARIN SODIUM,PORCINE 5,000 UNIT/ML 1 ML VIAL SQ SCH (21:56)
[2018-02-08] MEDS: LACTATED RINGERS 1,000 ML IV SCH ×2 (05:47→11:35)
[2018-02-08 06:19] LABS: HCT 39.2 % (39.0-53.0); MCH 33.3 pg (25.0-35.0); MCHC 33.3 g/dL (31.0-37.0); MCV 100.1 fL (80.0-100.0); Macrocytosis Slight; Platelet Count 170 k/uL (150-450); RBC 3.91 m/uL (4.30-5.90); RDW 14.4 % (11.5-15.5); WBC 13.3 k/uL (3.8-10.6)
[2018-02-08 06:31] LABS: Anion Gap 4 mmol/L; Blood Urea Nitrogen 12 mg/dL (9-20); Calcium 8.8 mg/dL (8.4-10.2); Carbon Dioxide 23 mmol/L (22-30); Chloride 110 mmol/L (98-107); Glucose 93 mg/dL (74-99); Magnesium 1.8 mg/dL (1.6-2.3); Potassium 4.2 mmol/L (3.5-5.1); Sodium 137 mmol/L (137-145)
--- NOTE | 2018-02-08 07:57 | P.PN ---
Progress Note - Text Progress Note Date: 02/08/18 POD 1 Right CEA Patient seen and examined. No overnight events. Patient states he feels great , pain is well controlled, and he has no complaints at this time. Vital signs stable throughout the night. Neck is soft, mild tenderness to palpation. SERAFIN drain is intact with serosanguineous drainage is minimal. No focal deficits. No facial droop, tongue is midline and strength is equal bilaterally. A/P: 1. Postoperative day 1 right carotid endarterectomy with patch angioplasty. 2. Paroxysmal A. fib - DC SERAFIN drain and Ryan catheter this morning. - Increasing activity, ambulate in the hallway. If patient is stable from medicine standpoint, ambulates and is urinating after Ryan removal and he can be discharged home with follow-up in 2 weeks.
[2018-02-08] MEDS: ATORVASTATIN 40 MG TAB PO SCH (08:38)
[2018-02-08] MEDS: HEPARIN SODIUM,PORCINE 5,000 UNIT/ML 1 ML VIAL SQ SCH (08:38)
[2018-02-08 08:44] VITALS: BP 110/67; TEMP 98
[2018-02-08] MEDS ORDERED: APIXABAN 5 MG TAB PO SCH (09:00)
[2018-02-08] MEDS ORDERED: amLODIPine 5 MG TAB PO SCH (09:00)
--- NOTE | 2018-02-08 09:56 | P.CONS ---
History of Present Illness - Reason for Consult Consult date: 02/08/18 Medical management Requesting physician: Rj Smith - Chief Complaint Status post right CEA - History of Present Illness 77-year-old male who has history of atrial fibrillation on Eliquis, nephrolithiasis and hypertension who is admitted electively for treatment of right carotid artery stenosis. Patient underwent right-sided CEA yesterday with patch and we were asked to see him in medical consultation today. One month prior to this admission, end of December, patient sustained sudden painless vision loss in the right eye. At that time he underwent evaluation with a CT of the head that was negative for any ischemic changes and show only cortical atrophy. 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 This was larger felt to be thromboembolic phenomena. He then underwent further evaluation and treatment including paracentesis on the right eye. Since then his vision improved and he did not have any further TIA or stroke like events. During the workup CT angiogram of the head and neck was done and showed 80% stenosis of the right carted artery and he was referred to vascular surgery for evaluation. He underwent elective right sided CEA as mentioned above. Today patient is recovering very well. He was seen and examined in intensive care unit. He is up in the chair and ambulate freely without any difficulties. There is no any chest pain shortness of breath cough any abdominal pain or back pain. Usual lines and catheters have been removed and he was evaluated by his saddle stitcher and he is blood pressure medication reviewed and adjusted. Patient is getting fairly from the bed and does not have any dizziness does not complain of any focal weakness or numbness or vision problems or headache. Lumbar work this morning is stable without any significant relatives. He is on Eliquis and amlodipine. Statin has been added by cardiology. He is not on antiplatelets at this time as per recommendation from cardiology and vascular surgery. Review of Systems REVIEW OF SYSTEMS: CONSTITUTIONAL: No fever or chills HEENT: No changes in vision or voice CARDIOVASCULAR: no chest pain or abnormal heart beats, or any swelling in ankles or feet. RESPIRATORY: No wheezing or coughing. GASTROINTESTINAL: No abdominal pain, no nausea no vomiting no constipation or diarrhea GENITOURINARY: no any urinary urgency, frequency or burning, and there has been no blood in her urine. no flank pain. MUSCULOSKELETAL: She notes full range of motion of all her joints without pain or swelling. NEUROLOGICAL: , no headache. no vision changes, or fainting. No numbness or tingling. Past Medical History Past Medical History: Atrial Fibrillation, Hypertension, Osteoarthritis (OA) History of Any Multi-Drug Resistant Organisms: None Reported Additional Past Surgical History / Comment(s): cervical fusion, cataract surg. Past Anesthesia/Blood Transfusion Reactions: No Reported Reaction Smoking Status: Current some day smoker - Past Family History Mother Family Medical History: No Reported History Medications and Allergies Home Medications Medication Instructions Recorded Confirmed Type Apixaban [Eliquis] 5 mg PO BID 06/22/16 02/07/18 History amLODIPine [Norvasc] 5 mg PO DAILY 06/22/16 02/07/18 History Allergies Allergy/AdvReac Type Severity Reaction Status Date / Time No Known Allergies Allergy Verified 02/05/18 10:06 Physical Exam Vitals: Vital Signs Temp Pulse Pulse Resp BP BP BP 02/08/18 09:00 68 27 H 110/67 02/08/18 08:30 60 20 110/67 02/08/18 08:00 98.0 F 66 25 H 79/47 02/08/18 07:30 57 L 20 79/47 02/08/18 07:00 55 L 19 79/47 02/08/18 06:30 49 L 18 02/08/18 06:00 49 L 18 02/08/18 05:30 47 L 13 02/08/18 05:00 43 L 16 02/08/18 04:30 98.6 F 42 L 17 02/08/18 04:00 46 L 60 17 02/08/18 03:30 52 L 18 02/08/18 03:00 57 L 20 02/08/18 02:30 48 L 17 02/08/18 02:00 53 L 10 L 02/08/18 01:30 55 L 15 02/08/18 01:00 56 L 16 02/08/18 00:30 47 L 15 02/08/18 00:00 48 L 60 14 02/07/18 23:30 48 L 15 02/07/18 23:17 50 L 15 02/07/18 23:00 55 L 17 02/07/18 22:30 49 L 22 02/07/18 22:00 53 L 23 02/07/18 21:30 52 L 21 02/07/18 21:00 49 L 14 02/07/18 20:30 49 L 19 02/07/18 20:00 56 L 60 18 02/07/18 19:30 97.8 F 67 18 02/07/18 19:00 73 15 02/07/18 18:30 84 12 02/07/18 18:00 82 21 02/07/18 17:30 83 23 02/07/18 17:00 55 L 20 02/07/18 16:30 55 L 19 02/07/18 16:00 61 60 17 02/07/18 15:30 55 L 15 02/07/18 15:00 61 15 02/07/18 14:45 60 15 02/07/18 14:30 49 L 17 02/07/18 14:10 49 L 14 79/47 02/07/18 14:00 56 L 15 79/47 02/07/18 13:50 46 L 25 H 02/07/18 13:40 51 L 14 79/47 02/07/18 13:30 49 L 14 79/47 02/07/18 13:20 66 16 79/47 02/07/18 13:10 50 L 22 02/07/18 13:00 53 L 13 02/07/18 12:50 70 64 H 79/47 02/07/18 12:40 63 16 79/47 02/07/18 12:30 57 L 16 02/07/18 12:20 63 17 02/07/18 12:10 54 L 15 02/07/18 12:00 97.9 F 60 60 12 02/07/18 11:50 19 02/07/18 11:49 28 H 02/07/18 11:30 60 16 98/42 83/46 02/07/18 11:15 58 L 16 96/41 81/47 02/07/18 11:00 50 L 16 102/55 91/55 02/07/18 10:42 97.1 F L 55 L 16 108/49 Pulse Ox 02/08/18 09:00 91 L 02/08/18 08:30 92 L 02/08/18 08:00 90 L 02/08/18 07:30 89 L 02/08/18 07:00 92 L 02/08/18 06:30 95 02/08/18 06:00 95 02/08/18 05:30 96 02/08/18 05:00 95 02/08/18 04:30 95 02/08/18 04:00 95 02/08/18 03:30 96 02/08/18 03:00 95 02/08/18 02:30 96 02/08/18 02:00 96 02/08/18 01:30 96 02/08/18 01:00 96 02/08/18 00:30 97 02/08/18 00:00 97 02/07/18 23:30 96 02/07/18 23:17 97 02/07/18 23:00 97 02/07/18 22:30 97 02/07/18 22:00 97 02/07/18 21:30 98 02/07/18 21:00 97 02/07/18 20:30 97 02/07/18 20:00 97 02/07/18 19:30 97 02/07/18 19:00 96 02/07/18 18:30 97 02/07/18 18:00 96 02/07/18 17:30 97 02/07/18 17:00 95 02/07/18 16:30 97 02/07/18 16:00 98 02/07/18 15:30 96 02/07/18 15:00 97 02/07/18 14:45 97 02/07/18 14:30 97 02/07/18 14:10 97 02/07/18 14:00 98 02/07/18 13:50 97 02/07/18 13:40 97 02/07/18 13:30 97 02/07/18 13:20 98 02/07/18 13:10 97 02/07/18 13:00 96 02/07/18 12:50 96 02/07/18 12:40 95 02/07/18 12:30 95 02/07/18 12:20 94 L 02/07/18 12:10 95 02/07/18 12:00 95 02/07/18 11:50 02/07/18 11:49 02/07/18 11:30 94 L 02/07/18 11:15 96 02/07/18 11:00 99 02/07/18 10:42 98 Intake and Output 02/07/18 02/08/18 02/08/18 22:59 06:59 14:59 Intake Total 480 400 654 Output Total 710 645 191 Balance -230 -245 463 Intake: IV 480 400 60 Lactated Ringers 1,000 ml 40 60 @ 20 mls/hr IV .Q24H [facility] Rx#:[id number] Lactated Ringers 1,000 ml 480 360 @ 60 mls/hr IV .[id number] [facility] Rx#:[id number] Oral 594 Output: Drainage 30 Right Neck 30 Urine 710 645 161 Other: Voiding Method Indwelling Catheter Indwelling Catheter Indwelling Catheter Weight 68.4 kg ABP, PAP, CO, CI - Last 8 Hours Arterial Blood Pressure 116/51 Arterial Blood Pressure 136/66 Arterial Blood Pressure 126/67 Arterial Blood Pressure 114/56 Arterial Blood Pressure 100/43 Arterial Blood Pressure 107/46 Arterial Blood Pressure 98/44 Arterial Blood Pressure 105/43 Arterial Blood Pressure 97/43 Arterial Blood Pressure 96/44 Arterial Blood Pressure 115/50 Arterial Blood Pressure 109/55 Arterial Blood Pressure 103/44 Arterial Blood Pressure 102/47 General: No distress. Oriented x 3, normal mood and affect . Ambulating without difficulty. HEENT: Head: Normocephalic, atraumatic, no visible or palpable masses, depressions, or scaring, conjunctiva clear, sclera non-icteric, EOM intact, PERRL; Oral: Mucous membranes moist, no mucosal lesions. Pharynx: Mucosa non-inflamed, no tonsillar hypertrophy or exudate Neck: Supple, without lesions, bruits, or adenopathy, thyroid non-enlarged and non-tender; Neck clean incision without any drainage or bleeding Heart: No cardiomegaly or thrills; regular rate and rhythm, no murmur or gallop , regular extrasystoles Lungs: Clear to auscultation and percussion Abdomen: Bowel sounds normal, no tenderness, organomegaly, masses, or hernia Back: Spine normal without deformity or tenderness, no CVA tenderness Extremities: No amputations or deformities, cyanosis, edema or varicosities, peripheral pulses intact Musculoskeletal: No peripheral joint swelling, pain, erythema. No clubbing Skin: Good turgor, no rash, unusual bruising or prominent lesions Neurologic: CN 2-12 normal. Sensation to pain, touch, and proprioception normal. DTRs normal in upper and lower extremities. No pathologic reflexes. Psychiatric: Oriented X3, intact recent and remote memory, judgment and insight , normal mood and affect. Results CBC & Chem 7: 02/08/18 06:00 02/08/18 06:00 Labs: Abnormal Lab Results - Last 24 Hours (Table) 02/07/18 02/07/18 02/07/18 Range/Units 11:49 14:00 17:04 WBC (3.8-10.6) k/uL RBC 4.19 L (4.30-5.90) m/uL MCV (80.0-100.0) fL Neutrophils # 8.1 H (1.3-7.7) k/uL Lymphocytes # 0.6 L (1.0-4.8) k/uL Chloride (98-107) mmol/L POC Glucose (mg/dL) 110 H 113 H (75-99) mg/dL 02/08/18 02/08/18 Range/Units 06:00 06:00 WBC 13.3 H (3.8-10.6) k/uL RBC 3.91 L (4.30-5.90) m/uL MCV 100.1 H (80.0-100.0) fL Neutrophils # (1.3-7.7) k/uL Lymphocytes # (1.0-4.8) k/uL Chloride 110 H (98-107) mmol/L POC Glucose (mg/dL) (75-99) mg/dL Assessment and Plan Assessment: 1. 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 Paroxysmal atrial fibrillation Appears in normal sinus rhythm right now He is currently on Eliquis Cardiology following 3. Hypertension Amlodipine continue Monitor blood pressure
--- NOTE | 2018-02-08 11:20 | PN ---
PROGRESS NOTE Mr. Fernando is a 77-year-old male with a history of hypertension, history of atrial fibrillation who underwent right carotid endarterectomy yesterday. He is doing well this morning. His breathing is stable. He is denying any chest pain. He has been hemodynamically stable. He continues to be at this time on amlodipine 5 mg daily, Eliquis 5 mg twice a day, Lipitor 40 mg daily. PHYSICAL EXAMINATION: Blood pressure 110/60 with a heart rate in the 60s. LUNGS: Clear. Regular rate and rhythm S1, S2. No S3. No rub. ABDOMEN: Soft, nontender. EXTREMITIES: No edema. Right neck site of incision is clean. LAB DATA: BUN and creatinine 12 and 0.89. Potassium 13. IMPRESSION: 1. Status post right carotid endarterectomy. 2. Paroxysmal atrial fibrillation. 3. Status post recent stroke. RECOMMENDATION: From the cardiac standpoint, he should be able to be discharged home today and followed as an outpatient as scheduled with Dr. Bolton. MMODL / GREYN: [id number] /
[2018-02-08 11:29] VITALS: PULSE 45; RESP 27
--- NOTE | 2018-02-11 07:37 | P.DS ---
Providers Date of admission: 02/07/18 05:36 Expected date of discharge: 02/08/18 Attending physician: Rj Smith DO Consults: 02/07/18 10:27 Consult Physician Routine Consulting Provider: Rodríguez Martin Consult Reason/Comments: medical management Do you want consulting provider notified?: Yes 02/07/18 10:33 Consult Physician Routine Consulting Provider: Andrés Bolton Consult Reason/Comments: afib Do you want consulting provider notified?: Yes 02/08/18 08:32 Consult Physician Routine Consulting Provider: Sofia Tellez Consult Reason/Comments: medical management Do you want consulting provider notified?: Already Contacted Primary care physician: Rodríguez Martin - Discharge Diagnosis(es) (1) Symptomatic stenosis of right carotid artery Status: Acute Hospital Course: 77 year old gentlemen presented to the hospital for right carotid endarterectomy for symptomatic carotid stenosis. He underwent surgery without complication on 02/07/2018 and was admitted to the hospital for monitoring. He did well overnight, had no neurologic issues, was tolerating a diet, pain was controlled and stable for discharge the following day. He was discharged home in stable condition. Procedures: right CEA Patient Condition at Discharge: Good Plan - Discharge Summary Discharge Rx Participant: Yes New Discharge Prescriptions: New Acetaminophen Tab [Tylenol] 650 mg PO Q6H PRN #30 tab PRN Reason: Pain Atorvastatin [Lipitor] 40 mg PO DAILY #30 tab Continue amLODIPine [Norvasc] 5 mg PO DAILY Apixaban [Eliquis] 5 mg PO BID Discharge Medication List Apixaban [Eliquis] 5 mg PO BID 06/22/16 [History] amLODIPine [Norvasc] 5 mg PO DAILY 06/22/16 [History] Acetaminophen Tab [Tylenol] 650 mg PO Q6H PRN #30 tab 02/08/18 [Rx] Atorvastatin [Lipitor] 40 mg PO DAILY #30 tab 02/08/18 [Rx] Follow up Appointment(s)/Referral(s): Rj Smith DO [STAFF PHYSICIAN] - 2 Weeks (Please call Saturday for an appointment.) Patient Instructions/Handouts: Wound Infection (DC), Carotid Endarterectomy (DC ) Activity/Diet/Wound Care/Special Instructions: No lifting greater than 15 lbs x 2 weeks. No driving x 1 week. Care Plan Goals (MU): Follow-up with vascular surgery and cardiology Discharge Disposition: HOME SELF-CARE
== END 2018-02-08 12:00 | disposition home or self-care (01) | DRG 38 ==
LOC: 2ORMAIN 05:36 → 2SICU 10:28
PROVIDERS: ADMIT Surgery; ATTEND Surgery
PROC: 03UK0KZ Supplement Right Internal Carotid Artery with Nonautologous Tissue Substitute, Open Approach (ICD-10-PCS; 2018-02-07)
PROC: 03CK0ZZ Extirpation of Matter from Right Internal Carotid Artery, Open Approach (ICD-10-PCS; principal; 2018-02-07 07:30)
DX: I65.21 Occlusion and stenosis of right carotid artery (principal); H34.9 Unspecified retinal vascular occlusion; I48.0 Paroxysmal atrial fibrillation; I69.912 Visuospatial deficit and spatial neglect following unspecified cerebrovascular disease; I65.09 Occlusion and stenosis of unspecified vertebral artery; R40.2363 Coma scale, best motor response, obeys commands, at hospital admission; R40.2253 Coma scale, best verbal response, oriented, at hospital admission; R40.2143 Coma scale, eyes open, spontaneous, at hospital admission; E78.5 Hyperlipidemia, unspecified; I10 Essential (primary) hypertension; M19.91 Primary osteoarthritis, unspecified site; F17.210 Nicotine dependence, cigarettes, uncomplicated; Z79.01 Long term (current) use of anticoagulants; Z79.899 Other long term (current) drug therapy; Z87.442 Personal history of urinary calculi; Z98.1 Arthrodesis status; Z98.49 Cataract extraction status, unspecified eye
CPT/HCPCS: 36415; 80048; 80051; 82565; 83735; 84520; 85025; 85027; 86850; 86900; 86901; 88304; 88311

== ENCOUNTER → 2018-03-10 | Outpatient (CLI) | payer MEDICARE ==
--- NOTE | 2018-03-10 22:48 | CT ---
EXAMINATION TYPE: CT brain w con DATE OF EXAM: 03/10/2018 COMPARISON: CT brain January 05, 2018 HISTORY: Headaches, Loss of Vision to Right Eye Post CVA [address] DLP: 1153 mGycm Automated exposure control for dose reduction was used. CONTRAST: CT scan of the head is performed with IV Contrast, patient injected with 100 mL of Isovue 300. FINDINGS: There is no abnormal enhancing mass or midline shift identified. There is ventricular and sulcal prom inence consistent with diffuse cerebral atrophy. There is low attenuation in the deep and periventric ular white matter. Scleral calcification left globe is redemonstrated. The paranasal sinuses are janet r. IMPRESSION: Redemonstration of moderate diffuse cerebral atrophy and probable chronic small vessel is chemic change. No suspicious enhancing mass or enhancement identified.
== END ==
LOC: RADCTMAIN 15:06
PROVIDERS: ATTEND Surgery
DX: G31.9 Degenerative disease of nervous system, unspecified (principal)
CPT/HCPCS: 82565; 84520; 70460; Q9967

== ENCOUNTER → 2022-01-25 | Outpatient (CLI) | payer MEDICARE, OTHER ==
--- NOTE | 2022-01-25 14:51 | MR ---
EXAMINATION TYPE: MR brain wo con DATE OF EXAM: 01/25/2022 COMPARISON: CT brain March 10, 2018 HISTORY: Occasional loss of reasoning, aphasia, TIA. TECHNIQUE: Multiplanar, multisequence imaging of the brain and brainstem is performed without IV cont rast. FINDINGS: Diffusion weighted images demonstrate no evidence of a recent infarct or other diffusion abnormality. There is moderate ventricular and sulcal prominence. There are multifocal and confluent areas of T2 h yperintensity seen throughout the deep and periventricular white matter. Lesions are nonspecific in a ppearance and distribution. Midline structures demonstrate normal morphology. The craniocervical junction appears within normal limits. Normal vascular flow voids are present. The visualized sinuses are clear and the globes are i ntact. IMPRESSION: No MRI evidence for a recent infarct. Moderate diffuse cerebral atrophy and chronic small vessel ischemic changes are present.
--- NOTE | 2022-01-25 15:21 | MR ---
EXAMINATION TYPE: MR angio head wo/neck wo/w con DATE OF EXAM: 01/25/2022 COMPARISON: CT brain March 10, 2018 HISTORY: Occasional loss of reasoning, aphasia, TIA. Right-sided hearing loss. History of prior neck surgery. TECHNIQUE: Time of flight images focusing on the [place] were performed without contrast.. 2-D and 3-D postprocessing imaging is performed on the MRI scanner. FINDINGS: Normal 3 vessel origins from aortic arch without significant stenosis normal origin right c ommon carotid artery from the right brachiocephalic artery. Prominence of the right carotid artery ne ar carotid bulbs suggest prior endarterectomy surgery. There is focal narrowing in the proximal inter nal carotid artery just distal to the carotid bulb down to 2.1 mm image 125 series 901 with reconstit ution to 5.0 mm distal to this no significant stenosis in the remainder of the right common or regulatory affairs intern al carotid artery. Similar prominence of the left internal carotid artery right carotid bulb with abr upt narrowing suggests possible prior surgery at this level. No significant stenosis is present as th ere is no increased dilatation distal to this. Patent external carotid arteries bilaterally are seen There is nonvisualized majority of left vertebral artery consistent with occlusion or hypoplastic sergio earance. There is dominant right vertebral artery filling the basilar artery. There are hypoplastic b ilateral posterior communicating arteries identified. No significant focal stenosis or aneurysm in th e posterior circulation. There is hypoplastic anterior communicating artery. There is no significant focal stenosis or aneurys m in the anterior circulation. IMPRESSION: 1. Significant stenosis in the proximal internal carotid artery measuring near 60% is felt present. 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 2. No significant focal stenosis or aneurysm at the level of the [place].
== END | disposition home or self-care (01) ==
LOC: RADMRIMAIN 12:17
PROVIDERS: ATTEND Psychiatry & Neurology Neurology
DX: I67.82 Cerebral ischemia (principal); I65.22 Occlusion and stenosis of left carotid artery; G31.9 Degenerative disease of nervous system, unspecified
CPT/HCPCS: 70544; 70549; 70551; A9585

== ENCOUNTER 2022-10-01 13:43 | Emergency (ER) | payer MEDICARE, OTHER ==
[2022-10-01] MEDS ORDERED: TRANEXAMIC ACID 1,000 MG/10 ML VIAL IRRIGATION ONE ×2 (15:06→15:36)
--- NOTE | 2022-10-01 15:06 | ED ---
General Adult HPI - General Chief complaint: Dental/Oral Stated complaint: bleeding gums-post dental procedure Time Seen by Provider: 10/01/22 14:37 Source: patient, RN notes reviewed Mode of arrival: ambulatory Limitations: no limitations - History of Present Illness Initial comments: 82-year-old male with past medical history significant for atrial fibrillation presents to the emergency department with a chief complaint of tongue bleeding. Patient reports that he had a dental procedure performed on 09/27/2022. He reports he had a dental implant performed. He was reports that he was not instructed to stop taking Eliquis. He reports the bleeding has not stopped since his procedure. Denies dizziness, lightheaded, chest pain, shortne ss of breath - Related Data Home Medications Medication Instructions Recorded Confirmed Apixaban [Eliquis] 5 mg PO BID 06/22/16 02/07/18 amLODIPine [Norvasc] 5 mg PO DAILY 06/22/16 02/07/18 Previous Rx's Medication Instructions Recorded Acetaminophen Tab [Tylenol] 650 mg PO Q6H PRN #30 tab 02/08/18 Atorvastatin [Lipitor] 40 mg PO DAILY #30 tab 02/08/18 Allergies Allergy/AdvReac Type Severity Reaction Status Date / Time No Known Allergies Allergy Verified 10/01/22 13:49 Review of Systems ROS Statement: Those systems with pertinent positive or pertinent negative responses have been documented in the HPI. ROS Other: All systems not noted in ROS Statement are negative. Past Medical History Past Medical History: Atrial Fibrillation, Hypertension, Osteoarthritis (OA) History of Any Multi-Drug Resistant Organisms: None Reported Additional Past Surgical History / Comment(s): cervical fusion, cataract surg. Past Anesthesia/Blood Transfusion Reactions: No Reported Reaction Past Psychological History: No Psychological Hx Reported Smoking Status: Current every day smoker Past Alcohol Use History: None Reported Past Drug Use History: None Reported - Past Family History Mother Family Medical History: No Reported History General Exam - General Exam Comments Initial Comments: General: Alert, in no acute distress Head: atraumatic normocephalic. Eyes PERRL, EOMI intact, mucous membranes moist, to see 11 with dental implant intact with steady bleeding airway remained intact Respiratory: Lungs clear to auscultation bilaterally Cardiovascular: Regular rate and rhythm Abdominal: Soft without guarding or rebound Extremities: Normal inspection with full range of motion and normal capillary refill Neuroogic: alert and oriented 3, CN II-XII intact, able to ambulate with steady gait Skin: warm dry and intact with normal color Limitations: no limitations Course Vital Signs 10/01/22 10/01/22 10/01/22 13:47 15:17 16:14 Temperature 98.3 F 98.1 F Pulse Rate 69 72 86 Respiratory 20 16 16 Rate Blood Pressure 149/72 153/103 152/86 O2 Sat by Pulse 99 93 L 97 Oximetry - Reevaluation(s) Reevaluation #1: 10/01/22 15:06 Dr. Mosley, Ortho Surgeon on-call at the bedside to evaluate the patient who recommends stoppping Eliquis and applying TXa to site. Medical Decision Making - Medical Decision Making Was pt. sent in by a medical professional or institution (, PA, [employer], urgent care, hospital, or retirement...) When possible be specific @ -[No] Did you speak to anyone other than the patient for history (EMS, parent, family, police, friend...)? What history was obtained from this source @ -[No] Did you review nursing and triage notes (agree or disagree)? Why? @ -[I reviewed and agree with nursing and triage notes] Were old charts reviewed (outside hosp., previous admission, EMS record, old EKG, old radiological studies, urgent care reports/EKG's, retirement records)? Report findings @ -[No old charts were reviewed] Differential Diagnosis (chest pain, altered mental status, abdominal pain women, abdominal pain men, vaginal bleeding, weakness, fever, dyspnea, syncope, headac he, dizziness, GI bleed, back pain, seizure, CVA, palpatations, mental health, musculoskeletal)? @ -[not applicable] EKG interpreted by me (3pts min.). @ -[As above] X-rays interpreted by me (1pt min.). @ -[None done] CT interpreted by me (1pt min.). @ -[None done] U/S interpreted by me (1pt. min.). @ -[None done] What testing was considered but not performed or refused? (CT, X-rays, U/S, labs)? Why? @ -[None] What meds were considered but not given or refused? Why? @ -[None] Did you discuss the management of the patient with other professionals (professionals i.e. DrGisselle, PA, [employer], lab, RT, psych nurse, social studies department chair, dye worker, teacher, business liaison officer, adult protective caseworker)? Give summary @ -Case discussed with Dr. Mosley, oral surgeon on-call who evaluated the patient in the emergency department. He recommends having the patient stop Eliquis for 2 days and applying TXA. Was smoking cessation discussed for >3mins.? @ -[No] Was critical care preformed (if so, how long)? @ -[No] Were there social determinants of health that impacted care today? How? (Homelessness, low income, unemployed, alcoholism, drug addiction, transportation, low edu. Level, literacy, decrease access to med. care, assisted, rehab)? @ -[No] Was there de-escalation of care discussed even if they declined (Discuss DNR or withdrawal of care, Hospice)? DNR status @ -[No] What co-morbidities impacted this encounter? (DM, HTN, Smoking, COPD, CAD, Cancer, CVA, ARF, Chemo, Hep., AIDS, mental health diagnosis, sleep apnea, morbid obesity)? @ -[None] Was patient admitted / discharged? Hospital course, mention meds given and route, prescriptions, significant lab abnormalities, going to OR and other pertinent info. @ -Discharged. This is an 82-year-old male who presents the emergency department with dental problem. Patient had a thorough history and physical exam performed on the ED. Physical exam reveals steady bleeding from tooth 11 site where he had recent dental procedure. Patient airway remained intact. Patient had TXA applied with symptomatic relief. Return precautions were discussed at length. Patient discharged in stable condition. Case discussed with Dr. Weems, [facility] who agrees with plan of care Undiagnosed new problem with uncertain prognosis? @ -[No] Drug Therapy requiring intensive monitoring for toxicity (Heparin, Nitro, Insulin, Cardizem)? @ -[No] Were any procedures done? @ -[No] Diagnosis/symptom? @ -Gingival bleeding on Eliquis Acute, or Chronic, or Acute on Chronic? @ -Acute Uncomplicated (without systemic symptoms) or Complicated (systemic symptoms)? @ -Uncomplicated Side effects of treatment? @ -[No] Exacerbation, Progression, or Severe Exacerbation? @ -[No] Poses a threat to life or bodily function? How? (Chest pain, [place], [place], pneumonia, PE, COPD, DKA, ARF, appy, cholecystitis, CVA, Diverticulitis, Homicidal, Suicidal, threat to staff... and all critical care pts) @ -Low likelihood - Lab Data Result diagrams: 10/01/22 15:48 10/01/22 15:48 Lab Results 10/01/22 10/01/22 Range/Units 15:48 15:48 WBC 13.8 H (3.8-10.6) k/uL RBC 4.21 L (4.30-5.90) m/uL Hgb 14.3 (13.0-17.5) gm/dL Hct 43.2 (39.0-53.0) % MCV 102.5 H (80.0-100.0) fL MCH 34.0 (25.0-35.0) pg MCHC 33.2 (31.0-37.0) g/dL RDW 13.5 (11.5-15.5) % Plt Count 298 (150-450) k/uL MPV 7.5 Neutrophils % 71 % Lymphocytes % 16 % Monocytes % 6 % Eosinophils % 4 % Basophils % 1 % Neutrophils # 9.8 H (1.3-7.7) k/uL Lymphocytes # 2.3 (1.0-4.8) k/uL Monocytes # 0.9 (0-1.0) k/uL Eosinophils # 0.6 (0-0.7) k/uL Basophils # 0.1 (0-0.2) k/uL Macrocytosis Slight Sodium 141 (137-145) mmol/L Potassium 3.7 (3.5-5.1) mmol/L Chloride 110 H (98-107) mmol/L Carbon Dioxide 21 L (22-30) mmol/L Anion Gap 10 mmol/L BUN 11 (9-20) mg/dL Creatinine 0.78 (0.66-1.25) mg/dL Est GFR (CKD-EPI)AfAm >90 (>60 ml/min/1.73 sqM) Est GFR (CKD-EPI)NonAf 84 (>60 ml/min/1.73 sqM) Glucose 95 (74-99) mg/dL Calcium 9.3 (8.4-10.2) mg/dL Disposition Clinical Impression: Gingival bleeding Disposition: HOME SELF-CARE Condition: Stable Additional Instructions: Please apply TXA as needed Please return to the nearest emergency department if symptoms worsen or persist Is patient prescribed a controlled substance at d/c from ED?: No Referrals: Stevie Ochoa DO [Primary Care Provider] - 1-2 days Tramaine Mosley DDS [STAFF PHYSICIAN] - 1-2 days Time of Disposition: 16:09
[2022-10-01 15:19] VITALS: RESP 16
[2022-10-01 16:14] LABS: Basophils # (A) 0.1 k/uL (0-0.2); Basophils % (A) 1 %; Eosinophils # (A) 0.6 k/uL (0-0.7); Eosinophils % (A) 4 %; HCT 43.2 % (39.0-53.0); HGB 14.3 gm/dL (13.0-17.5); Lymphocytes # (A) 2.3 k/uL (1.0-4.8); Lymphocytes % (A) 16 %; MCHC 33.2 g/dL (31.0-37.0); MCV 102.5 fL (80.0-100.0); Macrocytosis Slight; Mean Platelet Volume 7.5; Monocytes # (A) 0.9 k/uL (0-1.0); Monocytes % (A) 6 %; Neutrophils # (A) 9.8 k/uL (1.3-7.7); Neutrophils % (A) 71 %; Platelet Count 298 k/uL (150-450); RBC 4.21 m/uL (4.30-5.90); RDW 13.5 % (11.5-15.5); WBC 13.8 k/uL (3.8-10.6)
[2022-10-01 16:17] VITALS: BP 152/86; PULSE 86; TEMP 98.1
[2022-10-01 16:24] LABS: African American GFR (CKD) >90 (>60 ml/min/1.73 sqM); Anion Gap 10 mmol/L; Blood Urea Nitrogen 11 mg/dL (9-20); Calcium 9.3 mg/dL (8.4-10.2); Carbon Dioxide 21 mmol/L (22-30); Chloride 110 mmol/L (98-107); Glucose 95 mg/dL (74-99); Non-African American GFR(CKD) 84 (>60 ml/min/1.73 sqM); Potassium 3.7 mmol/L (3.5-5.1); Sodium 141 mmol/L (137-145)
== END 2022-10-01 16:17 | disposition home or self-care (01) ==
LOC: EC 13:43
DX: K06.8 Other specified disorders of gingiva and edentulous alveolar ridge (principal); I10 Essential (primary) hypertension; M19.90 Unspecified osteoarthritis, unspecified site; I48.91 Unspecified atrial fibrillation; F17.200 Nicotine dependence, unspecified, uncomplicated; Z79.01 Long term (current) use of anticoagulants; Z79.899 Other long term (current) drug therapy
CPT/HCPCS: 36415; 80048; 85025; 99283

== ENCOUNTER → 2024-06-02 | Outpatient (CLI) | payer MEDICARE, OTHER ==
--- NOTE | 2024-06-02 12:32 | MR ---
EXAMINATION TYPE: MR brain wo/w con DATE OF EXAM: 06/02/2024 COMPARISON: MRI brain January 25, 2022 HISTORY: Expressive language disorder TECHNIQUE: Multiplanar, multisequence images of the brain and brainstem is performed without and with IV contras t, utilizing 6 mL intravenous Gadobutrol . FINDINGS: Diffusion weighted images demonstrate no evidence of a recent infarct or other diffusion ab normality. There is moderate ventricular and sulcal prominence redemonstrated. Persistent multifocal and confluent areas of T2 hyperintensity seen throughout the white matter bilaterally. Midline structures redemonstrate normal morphology. The craniocervical junction appears within vinny l limits. Post contrast images demonstrate no abnormal enhancement. The dural venous sinuses appear patent. The visualized sinuses remain clear. Bilateral aphakia is redemonstrated. IMPRESSION: Persistent moderate diffuse cerebral atrophy and chronic small vessel ischemic change. No significant change from prior MRI study. [facility], , 06/02/2024 12:30 PM
== END | disposition home or self-care (01) ==
LOC: RADMRIMAIN 11:33
PROVIDERS: ATTEND Family Medicine
DX: F80.1 Expressive language disorder (principal); I67.82 Cerebral ischemia; G31.89 Other specified degenerative diseases of nervous system; H27.03 Aphakia, bilateral
CPT/HCPCS: 70553; A9585